=== PATIENT | female | born 1985 | race Caucasian/White ===

== ENCOUNTER 2018-04-07 01:11 | Observation (INO) | payer OTHER ==
[2018-04-07] MEDS ORDERED: NS 1,000 ML IV ONE (01:12)
[2018-04-07] MEDS ORDERED: methylPREDNISolone SOD SUCC 125 MG/2 ML VIAL IVP ONE (01:12)
[2018-04-07] MEDS ORDERED: EPINEPHrine 1 MG/ML INJ IM ONE ×2 (01:12→01:40)
[2018-04-07] MEDS ORDERED: FAMOTIDINE 20 MG/2 ML SDV IVP ONE (01:13)
--- NOTE | 2018-04-07 01:14 | EDPHY ---
H & P Time Seen by Provider: 04/07/18 01:12 HPI/ROS: CC: "I'm having an allergic reaction" HPI: This 32-year-old female with no significant past medical history presents to emergency department today complaining of an allergic reaction. She thinks it may be due to almonds but she also has had almonds without a reaction. She later states she also had an orange this evening. She had a similar episode back in December but did not seek treatment at that time. Her primary care provider , Se Thompson, ordered allergy testing but then there was an insurance problem and she did not reschedule. Tonight at a little before 11 her stomach started hurting after eating some sort of food from [employer] that contained dominant. Then her nose started running and her throat started to hurt and swell. She took 25 mg of Benadryl orally and drove herself to the emergency department. She does have an EpiPen and brought it with her but did not use it. It is painful for her to swallow but she is not drooling. She has hives. She does not have lightheadedness, trouble breathing, or chest pain. Recently and experiencing a lot of stress. Denies risk of . REVIEW OF SYSTEMS: Constitutional: No fever, no chills. Eyes: No discharge. ENT: See HPI. Respiratory: See HPI. Cardiac: No chest pain, no palpitations. Gastrointestinal: See HPI. Genitourinary: No hematuria. Musculoskeletal: No back pain. Skin: See HPI. Neurological: No headache. Source: Patient Exam Limitations: No limitations - Medical/Surgical History PMH: PMH: Denied PSH: Denied FH: Mother - seasonal allergies; Father - HTN Allergies: PCN Meds: OC PCP: Se Thompson - Social History Additional Social History: Recently . Occasional tobacco, occasional ETOH, no marijuana or illicit drugs. - Physical Exam Exam: General Appearance: Alert, moderate distress. "Hot potato voice." Eyes: Pupils equal and round no pallor or injection. ENT, Mouth: Profuse clear rhinorrhea from right nostril. Boggy edema right posterior oropharynx displacing uvula to the left. Respiratory: There are no retractions, lungs are clear to auscultation. Cardiovascular: Regular rate and rhythm. Gastrointestinal: Abdomen is soft and nontender, no masses, bowel sounds normal. Neurological: Awake and alert, sensory and motor exams grossly normal. Skin: Warm and dry, urticaria on trunk. Musculoskeletal: Neck is supple nontender. Extremities are symmetrical, full range of motion. Psychiatric: Patient is oriented X 3, there is no agitation. DIFFERENTIAL DIAGNOSIS: After history and physical exam differential diagnosis was considered for but not limited to: [food allergy, allergic reaction, urticaria, anaphylaxis] Constitutional: Initial Vital Signs Temperature (C) 97.7 F 04/07/18 01:14 Heart Rate 105 H 04/07/18 01:14 Respiratory Rate 20 04/07/18 01:14 Blood Pressure 135/92 H 04/07/18 01:14 O2 Sat (%) 95 04/07/18 01:14 O2 Delivery Mode Room Air Allergies/Adverse Reactions: Penicillins Allergy (Verified 04/07/18 01:14) Home Medications: Medication Instructions Recorded Previfem Tablet 04/07/18 Medical Decision Making ED Course/Re-evaluation: The patient was seen and examined immediately upon arrival. Vital signs reviewed and significant for a borderline tachycardia. Her blood pressure and oxygen saturation were normal. Her exam was very concerning with her posterior oropharynx edema impinging on her uvula. She was given epinephrine 0.3 mg IM. An IV was started and she was given Solu-Medrol 125 mg IV push, Pepcid total of 40 mg IVPB, she had taken 25 mg of Benadryl orally at home but subsequently was given another 25 mg IV push. A repeat exam showed there was more encroachment and displacement of the uvula to the left. She was given another dose of epinephrine 0.3 mg intramuscularly. Her symptoms then seem to stabilize although she still had rhinorrhea and her voice was still altered. The swelling persisted in her throat but was no longer displacing the uvula. The patient will be admitted to [facility] for observation. Discussed the case with hospitalist, Bri Ferris. Critical Care 60 minutes due to impending airway compromise. - Data Points Medications Given: Discontinued Medications Diphenhydramine HCl (Benadryl Injection) 25 mg IVP EDNOW ONE Stop: 04/07/18 01:25 Last Admin: 04/07/18 01:30 Dose: 25 mg Epinephrine HCl (Epinephrine) 0.3 mg IM EDNOW ONE Stop: 04/07/18 01:13 Last Admin: 04/07/18 01:19 Dose: 0.3 mg Epinephrine HCl (Epinephrine) 0.3 mg IM EDNOW ONE Stop: 04/07/18 01:41 Last Admin: 04/07/18 01:53 Dose: 0.3 mg Famotidine (Pepcid) 20 mg IVP EDNOW ONE Stop: 04/07/18 01:14 Last Admin: 04/07/18 01:21 Dose: 20 mg Sodium Chloride (Ns) 1,000 mls @ 0 mls/hr IV ONCE ONE; Wide Open PRN Reason: Protocol Stop: 04/07/18 01:13 Last Admin: 04/07/18 01:20 Dose: 1,000 mls Famotidine 20 mg/ Sodium (Chloride) 102 mls @ 408 mls/hr IV EDNOW ONE Stop: 04/07/18 01:52 Last Admin: 04/07/18 01:46 Dose: 102 mls Methylprednisolone Sodium Succinate (Solu-Medrol) 125 mg IVP EDNOW ONE Stop: 04/07/18 01:13 Last Admin: 04/07/18 01:20 Dose: 125 mg Departure - Departure Disposition: [facility] Inpatient Acute Clinical Impression: Acute anaphylaxis Qualifiers: Encounter type: initial encounter Qualified Code(s): T78.2XXA - Anaphylactic shock, unspecified, initial encounter Condition: Good
[2018-04-07] MEDS ORDERED: FAMOTIDINE 20 MG/2 ML SDV ONE (01:38)
[2018-04-07] MEDS ORDERED: FAMOTIDINE 20 MG in NS 100 ML IV ONE (01:38)
[2018-04-07] MEDS ORDERED: ONDANSETRON 4 MG/2 ML VIAL IVP PRN (02:47)
[2018-04-07] MEDS ORDERED: ONDANSETRON DISINTEGRATING 4 MG TAB PO PRN (02:47)
[2018-04-07] MEDS ORDERED: ACETAMINOPHEN 325 MG TAB PO PRN (02:47)
[2018-04-07] MEDS ORDERED: EPINEPHrine KIT (USE FOR EPIPEN) 1 MG/ML IM PRN (04:06)
--- NOTE | 2018-04-07 04:58 | PDGENHP ---
History and Physical - Chief Complaint Throat swelling, anaphylaxis - History of Present Illness Source-patient provides history appears reliable. EMR was reviewed and case discussed with ED provider before arrival from [facility]. HPI - this is a very pleasant 32-year-old female with no significant past medical history who presents to the emergency department at [facility] with complaints of feeling like her throat was itching and swelling shot. Patient also reported that she was feeling a diffusely itchy and developing a rash. She was concerned that she may have eaten foods that contained Almonds. Patient reports that back in October she was eating handfuls of all meds when she developed itching scratchy throat. Today patient had purchased some foods and thought that there could be some Homans mixed in to the food. She developed of 3 itchy throat and swelling as well as rhinorrhea and hand. She developed shortness of breath without any chest pain. She did not have any drooling. Patient reports the also history of developed itching after eating peaches on several occasions as well. Patient denies any fevers or chills. No recent illnesses. She does report she has been under significant amount of stress recently while going through a divorce process. She has been smoking in the last several months during this time as well. She denies any illicit drug use or smoking of marijuana. Patient was scheduled to follow up with waste oil pumper for testing but due to no insurance approval for coverage this was not completed. Patient has been carrying an EpiPen with her but she did not use it before arriving to [facility]. History Information - Allergies/Home Medication List Allergies/Adverse Reactions: Penicillins Allergy (Verified 04/07/18 01:14) Home Medications: Previfem Tablet 04/07/18 [Last Taken Unknown] I have personally reviewed and updated: family history, medical history, social history, surgical history - Past Medical History no pertinent PMH - Surgical History Additional surgical history: Lasik, colposcopy. - Family History Additional family history: Father-hypertension. Mother-seasonal allergies. No family members with any history of anaphylaxis or asthma. - Social History Smoking Status: Current some day smoker Tobacco Use: Cigarettes (Patient reports she smokes a few cigarettes a day.) Alcohol Use: Occasionally Drug Use: None Additional social history: Patient is . Cor status full. Review of Systems Review of Systems: ROS: 10pt was reviewed & negative except for what was stated in HPI & below Respiratory: Reports: shortness of breath. Denies: stridor Gastrointestinal: Reports: no symptoms Genitourinary: Reports: no symptoms Muscolosketal: Reports: no symptoms Skin: Reports: rash (Patient developed hives on her neck along the hairline, right axilla and anterior chest. which has since resolved.) Neurological: Reports: no symptoms Hematologic/Lymphatic: Reports: no symptoms Physical Exam Physical Exam: Selected Entries 04/07/18 01:14 Blood Pressure Automatic Method Heart Rate 105 H Respiratory 20 Rate O2 Sat (%) 95 Temperature (C) 36.5 C Blood Pressure 135/92 H Mean Arterial 106 H Pressure (MAP) O2 Delivery Room Air Mode Temperature Axillary Source Temp Pulse Resp BP Pulse Ox 36.6 C 86 18 99/58 L 98 04/07/18 03:35 04/07/18 04:00 04/07/18 04:00 04/07/18 04:00 04/07/18 04:00 Constitutional: no apparent distress, uncomfortable, other (NAD. Patient is lying in bed sleep. She wakes easily to name. Patient tox with a little lisp and has visual difficulties with swallowing her saliva due to complaints of pain but she does not have any drooling) Eyes: PERRL, anicteric sclera, EOMI, No scleral injection Ears, Nose, Mouth, Throat: moist mucous membranes, other (Nasal congestion but no drainage, patient with posterior or pharyngeal a edema and swelling of greater on the right on tonsillar area compared to the left. No evidence of abscess formation or erythema or exudates.) Cardiovascular: regular rate and rhythym, no murmur, rub, or gallop, pulses symmetric bilaterally, No systolic murmur, No edema Peripheral Pulses: 1+: dorsalis-pedis (R), dorsalis-pedis (L) Respiratory: no respiratory distress, no rales or rhonchi, clear to auscultation , No expiratory wheeze, No respiratory distress Gastrointestinal: normoactive bowel sounds, soft, non-tender abdomen, no palpable masses, No distension Genitourinary: no bladder tenderness, No ann in urethra Skin: warm, normal color, no rashes or abrasions Musculoskeletal: full muscle strength, other (Patient able to sit up independently) Neurologic: AAOx3, sensation intact bilaterally, other (Grossly nonfocal exam. Moves all extremities.), No weakness, No facial droop Psychiatric: interacting appropriately, not encephalopathic, thought process linear, anxious, No depressed Assessment & Plan Assessment: 32-year-old female with no significant past medical history presents emergency department with complaints of difficulty breathing and swallowing after eating foods likely containing Almonds #Acute anaphylaxis (Acute) - patient reports the likely exposure to Homans. She also describes an episode several years ago related to peaches on multiple occasions patient tried to eat those. Concern that patient may have a allergy to [place] related foods as Homans is related to peaches, apricots, cherries. Potentially social services counselor the patient before she is discharged to avoid these foods until she can follow up with her waste oil pumper. Given pace the severity of patient' s symptoms I did encourage her to try to work with her insurance to find a provider that she may follow up with and have further evaluation. #Odynophagia - supportive care. Will not add any Cepacol or additional exposures during this time. Clear liquid and ice chips. #FEN - p. O. Fluids as tolerated with clears has been ordered. Status post normal saline bolus in the ED patient appears hydrated continue with oral hydration at this time. Cor status-full Prophylaxis SCDs. Encourage mobilization. Anticipate short hospital stay and patient is overall low risk for DVT. Disposition - patient admitted observation status on SDU for close monitoring of her airway. Anticipate patient should be able to discharge within 48 hr if her symptoms continue to rapidly recover.
[2018-04-07 08:03] VITALS: BP 98/57
[2018-04-07] MEDS ORDERED: EPINEPHrine KIT (USE FOR EPIPEN) 1 MG/ML IM ONE (14:04)
[2018-04-07] MEDS ORDERED: methylPREDNISolone SOD SUCC 125 MG/2 ML VIAL ONE (14:04)
--- NOTE | 2018-04-07 18:18 | PDDCSUM ---
Discharge Summary Discharge Summary: Date of Admission: 04/07/2018 Date of Discharge: 04/07/2018 Consultants: none Discharge Diagnoses: 1. Anaphylaxis Brief Hospital Course: 32yo female with no significant past medical history presented with complaints of difficulty breathing and swallowing, hives, and nausea after eating foods likely containing almonds. She was was treated with IM epinephrine, benadryl and famotidine with resolution of her symptoms. She carries an epi-pen with her. Strict return precautions were given. She was advised to see an lacquer sprayer to determine food she should avoid and instructed to avoid almonds for the time being. Medications: Please refer to EMR for complete list. No changes were made this admission. Follow Up Plan: 1. Establish with lacquer sprayer Physical Exam: Vitals reviewed, normotensive, good oxygen saturations on room air. Alert and oriented. RRR without m/r/g, lungs clear without wheeze, no stridor, no oropharyngeal or tongue/lip edema, abdomen soft and nontender, no rashes.
== END 2018-04-07 09:40 | disposition home or self-care (01) ==
LOC: CED 01:11 → CEDHOLD 01:46 → INTOOBSV 01:46 → F2N 03:22
PROVIDERS: ADMIT Family Medicine; ATTEND Family Medicine
DX: T78.2XXA Anaphylactic shock, unspecified, initial encounter (principal); E86.9 Volume depletion, unspecified; F17.200 Nicotine dependence, unspecified, uncomplicated
CPT/HCPCS: 96361; 96372; 96374; 96375; 99291; G0378; J0171; J1200; J2930